=== PATIENT | female | born 1995 | race Caucasian/White ===

== ENCOUNTER 2018-05-02 09:20 | Inpatient (IN) | payer OTHER ==
[~2018-05-02] VITALS: Ht 157.5 cm; Wt 86.2 kg
[2018-05-02] MEDS ORDERED: FERR325E14 PO (10:01)
[2018-05-02] MEDS ORDERED: PREN-380 PO (10:01)
[2018-05-02] MEDS ORDERED: ONDANSETRON 4 MG/2 ML VIAL IVP PRN (10:10)
[2018-05-02] MEDS ORDERED: TERBUTALINE 1 MG/ML VIAL SUBQ SCH (10:10)
[2018-05-02] MEDS ORDERED: TERBUTALINE 1 MG/ML VIAL SUBQ ONE (10:24)
[2018-05-02] MEDS ORDERED: ONDANSETRON 4 MG/2 ML VIAL ONE (10:25)
[2018-05-02] MEDS ORDERED: DEXTROSE 10% 1,000 ML IV SCH (10:34)
[2018-05-02 10:42] VITALS: BP 114/74
[2018-05-02] MEDS ORDERED: FAMOTIDINE 20 MG TAB PO SCH (14:41)
[2018-05-03] MEDS ORDERED: FAMOTIDINE 20 MG TAB PO SCH (09:00)
== END 2018-05-02 18:30 | disposition home or self-care (01) | DRG 566 ==
LOC: MLD 09:20
PROVIDERS: ADMIT Obstetrics & Gynecology; ATTEND Obstetrics & Gynecology
DX: O99.613 Diseases of the digestive system complicating pregnancy, third trimester (principal); O26.893 Other specified pregnancy related conditions, third trimester; K80.80 Other cholelithiasis without obstruction; R10.9 Unspecified abdominal pain; R11.10 Vomiting, unspecified; Z3A.32 32 weeks gestation of pregnancy
CPT/HCPCS: J2405; J3105; J7120

== ENCOUNTER 2019-07-19 01:54 | Inpatient (IN) | payer OTHER ==
[~2019-07-19] VITALS: Ht 157.5 cm; Wt 78.5 kg
[~2019-07-19 01:54] MED LIST: FERR325E14 PO; PREN-380 PO
[2019-07-19] MEDS ORDERED: LACTATED RINGERS 1,000 ML IV SCH (02:19)
[2019-07-19] MEDS ORDERED: OXYTOCIN 20 UNITS in LACTATED RINGERS 1,000 ML IV SCH (02:20)
[2019-07-19] MEDS ORDERED: fentaNYL 0.05 MG/ML VIAL IVP PRN ×2 (02:45→07:50)
[2019-07-19] MEDS ORDERED: AMPICILLIN 2,000 MG VIAL ONE (02:51)
[2019-07-19] MEDS ORDERED: AMPICILLIN 2,000 MG in NACL 0.9% MINI-BAG PLUS 100 ML IV SCH (03:00)
[2019-07-19 03:03] LABS: EOSINOPHILS # (AUTO) 0.1 K/uL (0-0.4); EOSINOPHILS % (AUTO) 0.9 % (0.0-4.0); HEMATOCRIT 28.7 % (36-48); HEMOGLOBIN 8.7 g/dL (12.0-16.0); MONOCYTES # (AUTO) 0.8 K/uL (0.8-1.0)
[2019-07-19 03:13] LABS: BASOPHILS % (AUTO) 0.3 % (0.0-2.0); LYMPHOCYTES % (AUTO) 27.6 % (20.5-51.1); MEAN CORPUSCULAR HEMOGLOBIN 19 pg (27-31); MEAN CORPUSCULAR HGB CONC 30 g/dL (33-37); MEAN CORPUSCULAR VOLUME 61.1 fL (80-94); MONOCYTES % (AUTO) 7.5 % (1.7-9.3); NEUTROPHILS % (AUTO) 63.7 % (42.2-75.2); PLATELET COUNT (AUTO) 487 K/uL (140-450); RED BLOOD CELL COUNT(AUTO) 4.69 MIL/uL (4.20-5.40); RED CELL DISTRIBUTION WIDTH 18.9 % (11.6-13.7)
[2019-07-19 03:21] LABS: ALBUMIN 2.6 g/dL (3.4-5.0); ANION GAP 16.8 (8-16); CREATININE 0.5 mg/dL (0.6-1.3); POTASSIUM 3.8 mmol/L (3.5-5.1); TOTAL BILIRUBIN 0.4 mg/dL (0.0-1.0)
[2019-07-19 04:35] VITALS: BP 112/79
[2019-07-19 06:13] LABS: APPEARANCE,URINE HAZY (CLEAR); BILIRUBIN,URINE NEGATIVE (NEGATIVE); BLOOD, URINE 2+ (NEGATIVE); COLOR,URINE YELLOW (YELLOW); LEUKOCYTE ESTERASE ,URINE 1+ (NEGATIVE); NITRITE, URINE NEGATIVE (NEGATIVE); PH,URINE 6.5 (5.0-9.0); UGLUCOSE NEGATIVE (NEGATIVE)
[2019-07-19] MEDS ORDERED: OXYTOCIN 20 UNITS/LR PREMIX 1,000 ML IV ONE (06:13)
[2019-07-19] MEDS ORDERED: AMPICILLIN 1,000 MG VIAL ONE (06:14)
[2019-07-19 06:22] LABS: RBC,URINE NONE SEEN /HPF (0-5); WBC,URINE 20-60 /HPF (0-5)
[2019-07-19] MEDS ORDERED: TERBUTALINE 1 MG/ML VIAL SUBQ ONE (06:49)
[2019-07-19] MEDS ORDERED: AMPICILLIN 1,000 MG in NACL 0.9% MINI-BAG PLUS 50 ML IV SCH (07:00)
[2019-07-19] MEDS ORDERED: TERBUTALINE 1 MG/ML VIAL SUBQ SCH (07:05)
[2019-07-19] MEDS ORDERED: LIDOCAINE 1% 500 MG/50 ML VIAL ONE (07:27)
--- NOTE | 2019-07-19 08:34 | NUR ---
PATIENT HAS BEEN SCREENED AND CATEGORIZED LOW NUTRITION RISK. PATIENT WILL BE SEEN WITHIN 7 DAYS OF ADMISSION. 2.10.[address]
[2019-07-19] MEDS ORDERED: EPIDURAL KEYS MC ONE (09:55)
[2019-07-19] MEDS ORDERED: ROPIVACAINE 0.2%/NS PREMIX 100 ML EPI ONE (10:24)
[2019-07-19] MEDS ORDERED: MEASLES, MUMPS, AND RUBELLA 1 VIAL SQVAC PRN (13:25)
[2019-07-19] MEDS ORDERED: OXYTOCIN 10 UNITS/ML VIAL IM PRN (13:25)
[2019-07-19] MEDS ORDERED: IBUPROFEN 800 MG TAB PO PRN (13:25)
[2019-07-19] MEDS ORDERED: METHYLERGONOVINE 0.2 MG/ML AMP IM PRN (13:25)
[2019-07-19] MEDS ORDERED: BISACODYL 5 MG TABEC PO PRN (13:25)
[2019-07-19] MEDS ORDERED: IBUPROFEN 600 MG TAB PO PRN ×2 (13:25→13:54)
[2019-07-19] MEDS ORDERED: METHYLERGONOVINE 0.2 MG TAB PO PRN (13:25)
[2019-07-19] MEDS ORDERED: BENZOCAINE/MENTHOL 20%-0.5% 60 GM CAN TP PRN (13:25)
[2019-07-19] MEDS: IBUPROFEN 800 MG TAB PO PRN (18:12)
[2019-07-20 09:06] LABS: HEMATOCRIT 21.4 % (36-48)
[2019-07-20 09:22] LABS: HEMOGLOBIN 6.5 g/dL (12.0-16.0)
[2019-07-20] MEDS: IBUPROFEN 800 MG TAB PO PRN (18:38)
[2019-07-20] MEDS ORDERED: AMMONIA AROMATIC 1 INHL INH ONE (20:08)
[2019-07-21 07:25] LABS: HEMOGLOBIN 6.4 g/dL (12.0-16.0)
[2019-07-21] MEDS ORDERED: DOCU-299 PO (07:43)
[2019-07-21] MEDS ORDERED: ASCO-786 PO (07:43)
[2019-07-21] MEDS ORDERED: FERR-252 PO (07:44)
== END 2019-07-21 15:50 | disposition home or self-care (01) | DRG 560 ==
LOC: MFCC 01:54
PROVIDERS: ADMIT Obstetrics & Gynecology; ATTEND Obstetrics & Gynecology
PROC: 10E0XZZ Delivery of Products of Conception, External Approach (ICD-10-PCS; principal; 2019-07-19)
PROC: 0HQ9XZZ Repair Perineum Skin, External Approach (ICD-10-PCS; 2019-07-19)
PROC: 3E0R3BZ Introduction of Anesthetic Agent into Spinal Canal, Percutaneous Approach (ICD-10-PCS; 2019-07-19)
PROC: 00HU33Z Insertion of Infusion Device into Spinal Canal, Percutaneous Approach (ICD-10-PCS; 2019-07-19)
PROC: 10907ZC Drainage of Amniotic Fluid, Therapeutic from Products of Conception, Via Natural or Artificial Opening (ICD-10-PCS; 2019-07-19)
PROC: 3E0234Z Introduction of Serum, Toxoid and Vaccine into Muscle, Percutaneous Approach (ICD-10-PCS; 2019-07-19)
PROC: 3E0134Z Introduction of Serum, Toxoid and Vaccine into Subcutaneous Tissue, Percutaneous Approach (ICD-10-PCS; 2019-07-19)
DX: O70.0 First degree perineal laceration during delivery (principal); Z23 Encounter for immunization; Z37.0 Single live birth; Z3A.38 38 weeks gestation of pregnancy
CPT/HCPCS: 36415; 59409; 80053; 81001; 85018; 85025; 86592; 86886; 86900; 86901; 86920; 87086; 87653-90; 90715; J0290; J2001; J2590; J2795; J3010; J3105; J7120

== ENCOUNTER 2020-06-07 05:41 | Inpatient (IN) | payer OTHER, SELFPAY ==
[~2020-06-07] VITALS: Ht 157.5 cm; Wt 81.6 kg
[~2020-06-07 05:41] MED LIST changes: +ASCO-786 PO; -FERR325E14 PO
[2020-06-07] MEDS ORDERED: OXYTOCIN 20 UNITS in LACTATED RINGERS 1,000 ML IV SCH (06:15)
[2020-06-07] MEDS ORDERED: METHYLERGONOVINE 0.2 MG/ML AMP IM PRN ×2 (06:15→14:55)
[2020-06-07] MEDS ORDERED: CARBOPROST 250 MCG/ML AMP IM PRN (06:15)
[2020-06-07] MEDS ORDERED: LACTATED RINGERS 1,000 ML IV SCH (06:15)
[2020-06-07 06:49] VITALS: BP 110/80
[2020-06-07 07:00] LABS: APPEARANCE,URINE CLOUDY (CLEAR); BILIRUBIN,URINE NEGATIVE (NEGATIVE); BLOOD, URINE 3+ (NEGATIVE); COLOR,URINE RED (YELLOW); LEUKOCYTE ESTERASE ,URINE TRACE (NEGATIVE); NITRITE, URINE NEGATIVE (NEGATIVE); UGLUCOSE NEGATIVE (NEGATIVE)
[2020-06-07 07:15] LABS: BASOPHILS % (AUTO) 0.5 % (0.0-2.0); EOSINOPHILS # (AUTO) 0.1 K/uL (0-0.4); EOSINOPHILS % (AUTO) 0.8 % (0.0-4.0); HEMATOCRIT 30.6 % (36-48); HEMOGLOBIN 9.7 g/dL (12.0-16.0); LYMPHOCYTES # (AUTO) 1.9 K/uL (2.5-16.5); LYMPHOCYTES % (AUTO) 24.3 % (20.5-51.1); MEAN CORPUSCULAR HEMOGLOBIN 21 pg (27-31); MEAN CORPUSCULAR HGB CONC 32 g/dL (33-37); MEAN CORPUSCULAR VOLUME 66.1 fL (80-94); MONOCYTES # (AUTO) 0.7 K/uL (0.8-1.0); MONOCYTES % (AUTO) 8.5 % (1.7-9.3); NEUTROPHILS # (AUTO) 5.2 K/uL (1.8-7.7); NEUTROPHILS % (AUTO) 65.9 % (42.2-75.2); PLATELET COUNT (AUTO) 385 K/uL (140-450); RED BLOOD CELL COUNT(AUTO) 4.62 MIL/uL (4.20-5.40); RED CELL DISTRIBUTION WIDTH 23.8 % (11.6-13.7); WHITE BLOOD COUNT (AUTO) 7.8 K/uL (4.8-10.8)
[2020-06-07] MEDS ORDERED: MORPHINE SULFATE 5 MG/ML VIAL IVP PRN (07:20)
[2020-06-07] MEDS ORDERED: ONDANSETRON 4 MG/2 ML VIAL IVP PRN (07:20)
[2020-06-07] MEDS ORDERED: ONDANSETRON 4 MG/2 ML VIAL ONE (07:21)
[2020-06-07] MEDS ORDERED: MORPHINE SULFATE 10 MG/ML VIAL ONE (07:21)
[2020-06-07 07:25] VITALS: BP 109/63
[2020-06-07 07:36] LABS: ALBUMIN 2.7 g/dL (3.4-5.0); ANION GAP 16.3 (8-16); CARBON DIOXIDE 22.1 mmol/L (21-32); CREATININE 0.4 mg/dL (0.6-1.3); POTASSIUM 4.4 mmol/L (3.5-5.1); TOTAL BILIRUBIN 0.5 mg/dL (0.0-1.0)
[2020-06-07] MEDS ORDERED: OXYTOCIN 20 UNITS/LR PREMIX 1,000 ML IV ONE (07:38)
[2020-06-07] MEDS ORDERED: ROPIVACAINE 0.2%/NS PREMIX 200 ML EPI ONE (08:27)
--- NOTE | 2020-06-07 08:29 | NUR ---
PATIENT HAS BEEN SCREENED AND CATEGORIZED LOW NUTRITION RISK. PATIENT WILL BE SEEN WITHIN 7 DAYS OF ADMISSION. 06/13/[address]
[2020-06-07 12:10] LABS: RBC,URINE 50-80 /HPF (0-5); WBC,URINE 0-5 /HPF (0-5)
[2020-06-07] MEDS ORDERED: bisacodyL 5 MG TABEC PO PRN (14:55)
[2020-06-07] MEDS ORDERED: METHYLERGONOVINE 0.2 MG TAB PO PRN (14:55)
[2020-06-07] MEDS ORDERED: SIMETHICONE 80 MG TAB.CHEW PO PRN (14:55)
[2020-06-07] MEDS ORDERED: MEASLES, MUMPS, AND RUBELLA 1 VIAL SQVAC PRN (14:55)
[2020-06-07] MEDS ORDERED: DOCUSATE SODIUM 100 MG GELCAP PO PRN (14:55)
[2020-06-07] MEDS ORDERED: BENZOCAINE/MENTHOL 20%-0.5% 60 GM CAN TP PRN (14:55)
[2020-06-07] MEDS ORDERED: IBUPROFEN 800 MG TAB PO PRN (14:55)
[2020-06-07] MEDS ORDERED: OXYTOCIN 10 UNITS/ML VIAL IM PRN (14:55)
[2020-06-07] MEDS: IBUPROFEN 600 MG TAB PO PRN (19:15)
[2020-06-07] MEDS ORDERED: FLU VACCINE QS2020-21 0.5 ML SYR IMVAC PRN (21:05)
[2020-06-08] MEDS: LACTATED RINGERS 1,000 ML IV SCH ×2 (00:03→06:34)
[2020-06-08 08:24] LABS: HEMATOCRIT 25.8 % (36-48); HEMOGLOBIN 8.1 g/dL (12.0-16.0)
[2020-06-08] MEDS ORDERED: MEPERIDINE 25 MG/ML SYR IVP PRN (10:10)
[2020-06-08] MEDS ORDERED: ONDANSETRON 4 MG/2 ML VIAL IVP PRN (10:10)
[2020-06-08] MEDS ORDERED: HYDROmorphone 1 MG/ML AMP IVP PRN (10:10)
[2020-06-08] MEDS ORDERED: LACTATED RINGERS 1,000 ML IV SCH (10:10)
[2020-06-08] MEDS ORDERED: diphenhydrAMINE 50 MG/ML VIAL IVP PRN (10:10)
[2020-06-08] MEDS ORDERED: BUPIVACAINE-MPF/EPI 0.25% 10 ML VIAL INJ ONE (10:29)
[2020-06-08] MEDS: IBUPROFEN 600 MG TAB PO PRN (16:59)
[2020-06-09] MEDS: IBUPROFEN 600 MG TAB PO PRN ×2 (03:31→15:35)
[2020-06-09] MEDS ORDERED: CAMERA MC ONE (19:50)
== END 2020-06-09 20:50 | disposition home or self-care (01) | DRG 541 ==
LOC: MLD 05:41 → MFCC 18:44
PROVIDERS: ADMIT Obstetrics & Gynecology; ATTEND Obstetrics & Gynecology
PROC: 0UB50ZZ Excision of Right Fallopian Tube, Open Approach (ICD-10-PCS; 2020-06-08)
PROC: 10E0XZZ Delivery of Products of Conception, External Approach (ICD-10-PCS; principal; 2020-06-08 10:00)
DX: O99.62 Diseases of the digestive system complicating childbirth (principal); Z3A.39 39 weeks gestation of pregnancy; Z90.49 Acquired absence of other specified parts of digestive tract; Z90.721 Acquired absence of ovaries, unilateral; Z83.3 Family history of diabetes mellitus; Z30.2 Encounter for sterilization; K66.0 Peritoneal adhesions (postprocedural) (postinfection); Z37.0 Single live birth; R71.0 Precipitous drop in hematocrit
CPT/HCPCS: 36415; 51702; 59409; 80053; 81001; 85018; 85025; 86592; 86886; 86900; 86901; 88302; J0690; J2270; J2405; J2590; J2795; J3490; J7060